=== PATIENT | female | born 2000 | race Caucasian/White ===

== ENCOUNTER → 2022-02-28 | Outpatient (CLI) | payer BC ==
[2022-02-28 14:33] LABS: Basophils # (A) 0.02 X 10*3/uL (0.00-0.10); Basophils % (A) 0.4 %; Eosinophils # (A) 0.06 X 10*3/uL (0.04-0.35); Eosinophils % (A) 1.1 %; HCT 40.6 % (37.2-46.3); Immature Grans, Automated 0.2 %; Lymphocytes # (A) 1.75 X 10*3/uL (0.90-5.00); Lymphocytes % (A) 31.9 %; MCH 28.2 pg (27.0-32.0); MCV 88.1 fL (80.0-97.0); Mean Platelet Volume 10.3 fL (9.5-12.2); Monocytes # (A) 0.51 X 10*3/uL (0.20-1.00); Monocytes % (A) 9.3 %; NRBC Per 100 WBC 0 /100 WBCS (0.0-0.0); Neutrophils # (A) 3.13 X 10*3/uL (1.80-7.70); Neutrophils % (A) 57.1 %; Platelet Count 273 X 10*3/uL (140-440); RBC 4.61 X 10*6/uL (4.10-5.20); RDW 12.9 % (11.5-14.5); WBC 5.48 X 10*3/uL (4.50-10.00)
[2022-02-28 15:18] LABS: Ferritin 16.6 ng/mL (10.0-291.0)
== END | disposition home or self-care (01) ==
LOC: LABWHC1 10:25
PROVIDERS: ATTEND Nurse Practitioner
DX: R42 Dizziness and giddiness (principal)
CPT/HCPCS: 36415; 82306; 82728; 83540; 84466; 85025